=== PATIENT | male | born 1940 | race Caucasian/White ===

== ENCOUNTER 2017-07-21 01:10 | Observation (INO) | payer OTHER ==
[2017-07-21 01:28] LABS: PLATELET COUNT 226 10^3/uL (150-400)
[2017-07-21] MEDS ORDERED: NS 1,000 ML IV ONE (01:32)
--- NOTE | 2017-07-21 01:32 | EDPHY ---
H & P Stated Complaint: ams Time Seen by Provider: 07/21/17 01:20 HPI/ROS: HPI The patient presents brought in by paramedics with altered mental status. The patient's says that she left the house at 5:45 a.m. And he was acting normally, when she returned at 9:15 a.m. She noticed that he was confused, flushed, and was complaining that he felt hot which is unusual for him. She said he normally is aware of the date in his surroundings, though he was not able to provide this information for her. She called 911. Paramedics report that the patient was refusing to get on the pre a.m. And required restraints in route. They stated that he was confused though redirectable. His reports some of his psychiatric medications changed about 4 months ago. He does not have any diagnosis of dementia though has a history of TBI. [facility] is [facility].. REVIEW OF SYSTEMS Constitutional: No fever, no chills. Eyes: No discharge. ENT: No sore throat. Cardiovascular: No chest pain, no palpitations. Respiratory: No cough, no shortness of breath. Gastrointestinal: No abdominal pain, no vomiting. Genitourinary: No hematuria. Musculoskeletal: No back pain. Skin: No rashes. Neurological: No headache. PMHx: Bipolar disorder, tardive dyskinesia, COPD on 2 L home O2 p.r.n., hyperlipidemia, BPH, history of TBI, recent normal colonoscopy, [facility] patient Soc Hx: Lives at home with his PHYSICAL General Appearance: Alert, no distress Eyes: Pupils equal and round no pallor or injection ENT, Mouth: Mucous membranes moist Respiratory: There are no retractions, lungs are clear to auscultation Cardiovascular: Regular rate and rhythm Gastrointestinal: Abdomen is soft and non-tender, no masses, bowel sounds normal Neurological: Alert, cranial nerves 2-12 intact Skin: Warm and dry, no rashes Musculoskeletal: Neck is supple non tender Extremities: symmetrical, full range of motion Psychiatric: Patient is oriented X 2, there is no agitation Source: Patient, Family, EMS - Personal History Current Tetanus Diphtheria and Acellular Pertussis (TDAP): Unsure Tetanus Vaccine Date: < 10 years - Medical/Surgical History Hx Asthma: No Hx Chronic Respiratory Disease: Yes Hx Diabetes: No Hx Cardiac Disease: No Hx Renal Disease: No Hx Cirrhosis: No Hx Alcoholism: No Hx HIV/AIDS: No Hx Splenectomy or Spleen Trauma: No Other PMH: high cholesterol, COPD, bipolar disease, lung CA with partial right lobectomy, right shoulder repair, hx TBIs/Coma; benign skin CA, prostate issues , [place], hypothyroidism - Social History Smoking Status: Former smoker Constitutional: Initial Vital Signs Temperature (C) 36.6 C 07/21/17 01:14 Heart Rate 125 H 07/21/17 01:14 Respiratory Rate 18 07/21/17 01:14 Blood Pressure 107/86 H 07/21/17 01:14 O2 Sat (%) 95 07/21/17 01:14 O2 Delivery Mode Nasal Cannula O2 (L/minute) 2 Allergies/Adverse Reactions: paroxetine [Paroxetine] Allergy (Severe, Verified 07/21/17 01:14) Swelling/neck,face,throat Sulfa (Sulfonamide Antibiotics) Allergy (Mild, Verified 07/21/17 01:14) Unknown cortisone [Cortisone] Allergy (Unknown, Verified 07/21/17 01:14) Unknown Home Medications: Medication Instructions Recorded Aspirin 07/21/17 Combivent Respimat Inhal [place](*) 07/21/17 Lamotrigine 07/21/17 SIMVASTATIN 07/21/17 Tamsulosin HCl 07/21/17 traZODone 07/21/17 Medical Decision Making - Diagnostics EKG Interpretation: EKG: Complete interpretation has been separately recorded in the [facility] archive. Summary impression: Sinus tachycardia with right bundle branch block and left anterior fascicular block Imaging Results: Chest x-ray two view shows no infiltrate, no cardiomegaly, no effusion, interpreted by me, radiology interpretation is pending. Imaging: I viewed and interpreted images myself Differential Diagnosis: This is a 77-year-old male with history of bipolar disorder, COPD, traumatic brain injury who presents with altered mental status for the last several hours. returned home after being gone for about 3 hr finding him confused , flushed, complaining that he was feeling hot. On exam here, he is tachycardic, he is otherwise normal vital signs and is afebrile. His mental status is good, he is awake and alert though somewhat confused and nonsensical at times though easily redirectable. Differential diagnosis includes infection, electrolyte disturbance, dehydration , brain mass, CVA, medication side-effect. In the emergency department, patient was started on IV fluids for tachycardia. Labs were checked and were relatively unremarkable except for slightly elevated calcium level. CT scan of head showed no acute injuries. Despite IV fluids, the patient's mental status did not improve. His tachycardia did improve. UA showed no sign of infection, chest x-ray was normal. felt that she could not take him home because of his ongoing confusion. I have discussed the case with the hospitalist who will admit the patient. - Data Points Laboratory Results: Laboratory Results 07/21/17 01:15 07/21/17 01:15 07/21/17 07/21/17 07/21/17 03:20 01:15 01:15 WBC 9.57 10^3/uL H 10^3/uL (3.80-9.50) RBC 4.59 10^6/uL 10^6/uL (4.40-6.38) Hgb 14.4 g/dL g/dL (13.7-17.5) Hct 43.6 % % (40.0-51.0) MCV 95.0 fL fL (81.5-99.8) MCH 31.4 pg pg (27.9-34.1) MCHC 33.0 g/dL g/dL (32.4-36.7) RDW 13.2 % % (11.5-15.2) Plt Count 226 10^3/uL 10^3/uL (150-400) MPV 8.8 fL fL (8.7-11.7) Neut % (Auto) 74.6 % H % (39.3-74.2) Lymph % (Auto) 15.8 % % (15.0-45.0) [place] % (Auto) 7.0 % % (4.5-13.0) Eos % (Auto) 1.3 % % (0.6-7.6) Baso % (Auto) 0.9 % % (0.3-1.7) Nucleat RBC Rel Count 0.0 % % (0.0-0.2) Absolute Neuts (auto) 7.14 10^3/uL H 10^3/uL (1.70-6.50) Absolute Lymphs (auto) 1.51 10^3/uL 10^3/uL (1.00-3.00) Absolute Monos (auto) 0.67 10^3/uL 10^3/uL (0.30-0.80) Absolute Eos (auto) 0.12 10^3/uL 10^3/uL (0.03-0.40) Absolute Basos (auto) 0.09 10^3/uL 10^3/uL (0.02-0.10) Absolute Nucleated RBC 0.00 10^3/uL 10^3/uL (0-0.01) Immature Gran % 0.4 % % (0.0-1.1) Immature Gran # 0.04 10^3/uL 10^3/uL (0.00-0.10) Sodium 146 mEq/L H mEq/L (135-145) Potassium 4.6 mEq/L mEq/L (3.5-5.2) Chloride 107 mEq/L mEq/L (97-110) Carbon Dioxide 24 mEq/l mEq/l (22-31) Anion Gap 15 mEq/L mEq/L (8-16) BUN 28 mg/dL H mg/dL (7-23) Creatinine 1.1 mg/dL mg/dL (0.7-1.3) Estimated GFR > 60 Glucose 108 mg/dL H mg/dL (70-100) Calcium 11.4 mg/dL H mg/dL (8.5-10.4) Phosphorus 3.8 mg/dL mg/dL (2.5-4.5) Total Bilirubin 0.6 mg/dL mg/dL (0.1-1.4) Conjugated Bilirubin 0.4 mg/dL mg/dL (0.0-0.5) Unconjugated Bilirubin 0.2 mg/dL mg/dL (0.0-1.1) AST 27 IU/L IU/L (17-59) ALT 42 IU/L IU/L (21-72) Alkaline Phosphatase 114 IU/L IU/L (38-126) Total Protein 7.6 g/dL g/dL (6.3-8.2) Albumin 4.9 g/dL g/dL (3.5-5.0) TSH 5.330 uIU/mL H uIU/mL (0.465-4.680) Urine Color COLORLESS Urine Appearance CLEAR Urine pH 6.0 (5.0-7.5) Ur Specific [place] 1.004 (1.002-1.030) Urine Protein NEGATIVE (NEGATIVE) Urine Ketones NEGATIVE (NEGATIVE) Urine Blood NEGATIVE (NEGATIVE) Urine Nitrate NEGATIVE (NEGATIVE) Urine Bilirubin NEGATIVE (NEGATIVE) Urine Urobilinogen NEGATIVE EU EU (0.2-1.0) Ur Leukocyte Esterase NEGATIVE (NEGATIVE) Urine Glucose NEGATIVE (NEGATIVE) Urine Opiates Screen NEGATIVE (NEGATIVE) Urine Barbiturates NEGATIVE (NEGATIVE) Ur Phencyclidine Scrn NEGATIVE (NEGATIVE) Ur Amphetamine Screen NEGATIVE (NEGATIVE) U Benzodiazepines Scrn NEGATIVE (NEGATIVE) [place] < 0.2 mEq/L L mEq/L (0.6-1.2) Urine Cocaine Screen NEGATIVE (NEGATIVE) U Marijuana (THC) Screen NEGATIVE (NEGATIVE) Ethyl Alcohol < 10 mg/dL mg/dL (0-10) Medications Given: Discontinued Medications Sodium Chloride (Ns) 1,000 mls @ 0 mls/hr IV EDNOW ONE; Wide Open PRN Reason: Protocol Stop: 07/21/17 01:33 Last Admin: 07/21/17 01:48 Dose: 1,000 mls Departure - Departure Disposition: [facility] Inpatient Acute Clinical Impression: Hypercalcemia, Dehydration Altered mental status Qualifiers: Altered mental status type: disorientation Qualified Code(s): R41.0 - Disorientation, unspecified Bipolar disorder Qualifiers: Active/Remission status: currently active Current bipolar episode type: manic Current episode severity: unspecified Qualified Code(s): F31.9 - Bipolar disorder, unspecified Condition: Fair
--- NOTE | 2017-07-21 01:57 | CPEKG ---
Heart Rate: 130 RR Interval: 462 P-R Interval: 76 QRSD Interval: 142 QT Interval: 356 QTC Interval: 524 P Hope: 0 QRS Hope: 103 T Wave Hope: -5 EKG Severity - ABNORMAL ECG - EKG Impression: SINUS TACHYCARDIA EKG Impression: VENTRICULAR PREMATURE COMPLEX EKG Impression: RBBB AND LPFB Electronically Signed By: Kamini Osborn 22-Jul-2017 07:51:34
[2017-07-21] MEDS ORDERED: ONDANSETRON 4 MG/2 ML VIAL IVP PRN (04:23)
[2017-07-21] MEDS ORDERED: ONDANSETRON DISINTEGRATING 4 MG TAB PO PRN (04:23)
[2017-07-21] MEDS ORDERED: ACETAMINOPHEN 325 MG TAB PO PRN (04:23)
--- NOTE | 2017-07-21 05:22 | PDGENHP ---
History and Physical - Chief Complaint Confusion - History of Present Illness 77 yo M w/ BPD and COPD comes in with confusion. His brought him in because of odd statements at home. Apparently he was making delusional claims about his meal and his dogs earlier in the day. Per his , he was appropriate as recently as early this morning. The patient himself denies any complaints to me. He is A&Ox3 with appropriate knowledge but did make some odd statements in my presence, like stating that his was going to be admitted and then sent to another facility. He denies auditory or visual hallucinations. His did note that he did not sleep at all 2 nights ago, and that he has not shown any signs of being fatigued since. He takes lamotrigine for BPD, which is new to him 4 months ago. His has no concerns about non-compliance. History Information - Allergies/Home Medication List Allergies/Adverse Reactions: paroxetine [Paroxetine] Allergy (Severe, Verified 07/21/17 01:14) Swelling/neck,face,throat Sulfa (Sulfonamide Antibiotics) Allergy (Mild, Verified 07/21/17 01:14) Unknown cortisone [Cortisone] Allergy (Unknown, Verified 07/21/17 01:14) Unknown Home Medications: Aspirin 07/21/17 [Last Taken Unknown] Combivent Respimat Inhal [place](*) 07/21/17 [Last Taken Unknown] Lamotrigine 07/21/17 [Last Taken Unknown] SIMVASTATIN 07/21/17 [Last Taken Unknown] Tamsulosin HCl 07/21/17 [Last Taken Unknown] traZODone 07/21/17 [Last Taken Unknown] I have personally reviewed and updated: family history, medical history - Past Medical History COPD Additional medical history: Bipolar d/o - Family History Positive for: cancer - Social History Smoking Status: Former smoker Review of Systems Review of Systems: ROS: 10pt was reviewed & negative except for what was stated in HPI & below Physical Exam Physical Exam: Temp Pulse Resp BP Pulse Ox 36.6 C 64 20 136/87 H 98 07/21/17 01:14 07/21/17 04:10 07/21/17 04:10 07/21/17 04:10 07/21/17 04:10 Constitutional: no apparent distress, not in pain Eyes: PERRL, EOMI Ears, Nose, Mouth, Throat: moist mucous membranes, no oral mucosal ulcers Cardiovascular: regular rate and rhythym, no murmur, rub, or gallop Respiratory: no respiratory distress, clear to auscultation Gastrointestinal: normoactive bowel sounds, soft, non-tender abdomen Skin: warm, normal color Musculoskeletal: full muscle strength, no muscle tenderness Neurologic: AAOx3, CN II-XII Intact, other (Tardive dyskinesia noted) Psychiatric: interacting appropriately, not anxious Lab Data & Imaging Review 07/21/17 01:15 07/21/17 01:15 WBC 9.57 10^3/uL (3.80-9.50) H 07/21/17 01:15 RBC 4.59 10^6/uL (4.40-6.38) 07/21/17 01:15 Hgb 14.4 g/dL (13.7-17.5) 07/21/17 01:15 Hct 43.6 % (40.0-51.0) 07/21/17 01:15 MCV 95.0 fL (81.5-99.8) 07/21/17 01:15 MCH 31.4 pg (27.9-34.1) 07/21/17 01:15 MCHC 33.0 g/dL (32.4-36.7) 07/21/17 01:15 RDW 13.2 % (11.5-15.2) 07/21/17 01:15 Plt Count 226 10^3/uL (150-400) 07/21/17 01:15 MPV 8.8 fL (8.7-11.7) 07/21/17 01:15 Neut % (Auto) 74.6 % (39.3-74.2) H 07/21/17 01:15 Lymph % (Auto) 15.8 % (15.0-45.0) 07/21/17 01:15 [place] % (Auto) 7.0 % (4.5-13.0) 07/21/17 01:15 Eos % (Auto) 1.3 % (0.6-7.6) 07/21/17 01:15 Baso % (Auto) 0.9 % (0.3-1.7) 07/21/17 01:15 Nucleat RBC Rel Count 0.0 % (0.0-0.2) 07/21/17 01:15 Absolute Neuts (auto) 7.14 10^3/uL (1.70-6.50) H 07/21/17 01:15 Absolute Lymphs (auto) 1.51 10^3/uL (1.00-3.00) 07/21/17 01:15 Absolute Monos (auto) 0.67 10^3/uL (0.30-0.80) 07/21/17 01:15 Absolute Eos (auto) 0.12 10^3/uL (0.03-0.40) 07/21/17 01:15 Absolute Basos (auto) 0.09 10^3/uL (0.02-0.10) 07/21/17 01:15 Absolute Nucleated RBC 0.00 10^3/uL (0-0.01) 07/21/17 01:15 Immature Gran % 0.4 % (0.0-1.1) 07/21/17 01:15 Immature Gran # 0.04 10^3/uL (0.00-0.10) 07/21/17 01:15 Sodium 146 mEq/L (135-145) H 07/21/17 01:15 Potassium 4.6 mEq/L (3.5-5.2) 07/21/17 01:15 Chloride 107 mEq/L (97-110) 07/21/17 01:15 Carbon Dioxide 24 mEq/l (22-31) 07/21/17 01:15 Anion Gap 15 mEq/L (8-16) 07/21/17 01:15 BUN 28 mg/dL (7-23) H 07/21/17 01:15 Creatinine 1.1 mg/dL (0.7-1.3) 07/21/17 01:15 Estimated GFR > 60 07/21/17 01:15 Glucose 108 mg/dL (70-100) H 07/21/17 01:15 Calcium 11.4 mg/dL (8.5-10.4) H 07/21/17 01:15 Phosphorus 3.8 mg/dL (2.5-4.5) 07/21/17 01:15 Total Bilirubin 0.6 mg/dL (0.1-1.4) 07/21/17 01:15 Conjugated Bilirubin 0.4 mg/dL (0.0-0.5) 07/21/17 01:15 Unconjugated Bilirubin 0.2 mg/dL (0.0-1.1) 07/21/17 01:15 AST 27 IU/L (17-59) 07/21/17 01:15 ALT 42 IU/L (21-72) 07/21/17 01:15 Alkaline Phosphatase 114 IU/L (38-126) 07/21/17 01:15 Total Protein 7.6 g/dL (6.3-8.2) 07/21/17 01:15 Albumin 4.9 g/dL (3.5-5.0) 07/21/17 01:15 TSH 5.330 uIU/mL (0.465-4.680) H 07/21/17 01:15 Urine Color COLORLESS 07/21/17 03:20 Urine Appearance CLEAR 07/21/17 03:20 Urine pH 6.0 (5.0-7.5) 07/21/17 03:20 Ur Specific [place] 1.004 (1.002-1.030) 07/21/17 03:20 Urine Protein NEGATIVE (NEGATIVE) 07/21/17 03:20 Urine Ketones NEGATIVE (NEGATIVE) 07/21/17 03:20 Urine Blood NEGATIVE (NEGATIVE) 07/21/17 03:20 Urine Nitrate NEGATIVE (NEGATIVE) 07/21/17 03:20 Urine Bilirubin NEGATIVE (NEGATIVE) 07/21/17 03:20 Urine Urobilinogen NEGATIVE EU (0.2-1.0) 07/21/17 03:20 Ur Leukocyte Esterase NEGATIVE (NEGATIVE) 07/21/17 03:20 Urine Glucose NEGATIVE (NEGATIVE) 07/21/17 03:20 Urine Opiates Screen NEGATIVE (NEGATIVE) 07/21/17 03:20 Urine Barbiturates NEGATIVE (NEGATIVE) 07/21/17 03:20 Ur Phencyclidine Scrn NEGATIVE (NEGATIVE) 07/21/17 03:20 Ur Amphetamine Screen NEGATIVE (NEGATIVE) 07/21/17 03:20 U Benzodiazepines Scrn NEGATIVE (NEGATIVE) 07/21/17 03:20 [place] < 0.2 mEq/L (0.6-1.2) L 07/21/17 01:15 Urine Cocaine Screen NEGATIVE (NEGATIVE) 07/21/17 03:20 U Marijuana (THC) Screen NEGATIVE (NEGATIVE) 07/21/17 03:20 Ethyl Alcohol < 10 mg/dL (0-10) 07/21/17 01:15 Visualized and Interpreted Chest x-ray results: Yes Chest X-Ray results: no infiltrate Assessment & Plan Assessment: 77 yo M w/ BPD and COPD presents with AMS. Plan: 1. Acute encephalopathy - Unclear etiology; overall this is fairly subtle and manifested mostly as delusional thinking without overt hallucinations. The patient himself is A&Ox3 and denies any symptoms. He has slept little over the last few days, which may be a signal of hypomania or early nikhil. His laboratory work-up is notable only for mildly abnormal TSH and calcium, which are unlikely responsible but merit further investigation. CTH without acute findings. - Admit for observation - Repeat CMP with AM labs to recheck Calcium and albumin levels - Will check free T4 to better quantify thyroid function - UA, CXR for basic infectious work-up - PT/OT evaluations - Would consult psychiatry for evaluation 2. Hx of BPD - Takes lamotrigine as monotherapy; this is new as of 4 months ago. 3. COPD - No signs of acute exacerbation, on Combivent as outpatient. Diet - Regular Code - Full Ppx - LMWH Dispo - Admit under observation status
[2017-07-21] MEDS: ENOXAPARIN 40 MG/0.4 ML SYR SC SCH (08:21)
--- NOTE | 2017-07-21 09:13 | HOSPPROG ---
Hospitalist Progress Note Assessment/Plan: Patient is a 77-year-old male with bipolar disorder and COPD. His brought him to the emergency room due to confusion and the patient was making odd statements. He was started on Lamictal approximately 4 months ago. Today is my 1st encounter with the patient. Chart reviewed. I discussed his case with the admitting hospitalist this morning * Acute encephalopathy -reviewed the CT of the head which showed no significant changes from his brain MRI in 2009 -chest x-ray shows no infectious etiology -he slept very little over the last few days and could be of signal of nikhil -will ask speech therapy to do a cognitive evaluation -TSH is high with a stable T4 -ua is fine -patient sees a psychiatrist via the [facility] * history of bipolar disorder -recently started on lamotrigine -sees a doctor at the [facility]-psychiatrist * COPD -uses Combivent in the outpatient setting -current 3 L of oxygen *Plan: patient is medically stable, but unclear about his BPD. Spoke w JESSICA VALENCIA and they will evaluate, He is alert, oriented to person, time, who the president is, but thinks he is here because his was having seizures. Will ask psychiatry to weigh in. Subjective: Pat said he feels fine, has no complaints. Objective: Vital Signs Temp Pulse Resp BP Pulse Ox 36.4 C 67 18 131/81 H 98 07/21/17 07:38 07/21/17 07:38 07/21/17 07:38 07/21/17 07:38 07/21/17 07:38 Laboratory Results 07/21/17 07:57 07/20/17 07/21/17 07/22/17 05:59 05:59 05:59 Output Total 650 Balance -650 - Physical Exam Constitutional: no apparent distress, appears nourished, not in pain Eyes: PERRL Ears, Nose, Mouth, Throat: hard of hearing Cardiovascular: regular rate and rhythym Respiratory: no respiratory distress Gastrointestinal: normoactive bowel sounds Skin: warm Neurologic: AAOx3 Psychiatric: interacting appropriately, poor insight, poor judgement, poor memory ICD10 Worksheet Patient Problems: Problems Problem Status Onset Altered mental status Acute Bipolar disorder Acute Dehydration Acute Hypercalcemia Acute Bipolar disease, manic Acute
--- NOTE | 2017-07-21 14:06 | ASMTCMCOM ---
CM Note CM Note Notes: Pt in for AMS after noticed pt to be altered. Pt with Bipolar Disorder, COPD, history of TBI and lung cancer. Chart review indicates pt was at [facility] inpatient beh health 2 years ago. [facility] assessed pt today to have no acute beh health needs requiring inpatient beh health. Pt followed by psychiatrist at [facility] in [place]. [employer] eval pending. CM to follow. Date Signed: 07/21/2017 02:05 PM Electronically Signed By:ZOILA Vail
[2017-07-21] MEDS ORDERED: ALBUTEROL 60 PUFFS/8 GM MDI IH PRN (15:33)
[2017-07-21] MEDS ORDERED: traZODone 100 MG TAB PO PRN (15:33)
[2017-07-21] MEDS: IPRATROPIUM/ALBUTEROL 4GM MDI IH SCH ×2 (17:17→20:25)
[2017-07-21] MEDS ORDERED: lamoTRIgine 100 MG TAB PO SCH (21:00)
[2017-07-21] MEDS ORDERED: TAMSULOSIN HCL 0.4 MG CAP PO SCH (21:00)
[2017-07-21] MEDS ORDERED: NON-FORMULARY NEW DRUG (Simvastatin [Simvastatin] 40 MG) PO SCH (21:00)
[2017-07-21] MEDS ORDERED: NON-FORMULARY NEW DRUG (Lamotrigine [Lamotrigine] 200 MG) PO SCH (21:00)
[2017-07-21] MEDS ORDERED: ATORVASTATIN CALCIUM 20 MG TAB PO SCH (21:00)
[2017-07-21] MEDS ORDERED: BUDESONIDE/FORMOTEROL 160/4.5 60 PUFFS/MDI IH SCH (21:00)
[2017-07-22] MEDS: IPRATROPIUM/ALBUTEROL 4GM MDI IH SCH ×2 (05:35→08:42)
[2017-07-22] MEDS ORDERED: BUDESONIDE/FORMOTEROL 160/4.5 60 PUFFS/MDI IH SCH (09:00)
[2017-07-22] MEDS ORDERED: ASPIRIN EC 81 MG TAB PO SCH (09:00)
[2017-07-22] MEDS: ENOXAPARIN 40 MG/0.4 ML SYR SC SCH (10:21)
[2017-07-22 11:43] VITALS: BP 95/69
--- NOTE | 2017-07-22 12:15 | NEUROPROG ---
Assessment: HOSPITAL NEUROLOGY CONSULT REQUESTING: Ani Bradley NP REASON: AMS HPI: 77 year old right-handed man with a history of bipolar disorder presented to our ED 07/20 with AMS. Patient's is at bedside at presents most of the history. On day of admission, patient began displaying concerning symptoms of confusion. He is usually oriented an appropriate, but seemed to not know the date. He was also making odd statements. states he had not slept the 2 nights prior to admission. He tells me he is not the one hospitalized, but actually his is here in the hospital for low calcium that was just fixed so she's going home today. He states he feels well and has no departure from his baseline. He has not made any indication of self harm or harm to others. No indication of hallucinations. No agitation or other behavioral disturbance. He does have long-standing orolingual dyskinesias, but no other adventitial movements. No stiffness/rigidity of the limbs. No change in gait. No weakness or sensory loss. No speech/language disturbance. No JACK, fevers. No LOC or seizure activity. No indication of recent illness or injury. ROS: As per the HPI, otherwise a complete 12 point ROS was performed and is negative ALLERGIES AND MEDS: As recorded in the EMR - reviewed and reconciled PFSH: As per the intake H&P by Dr. Gorman from 07/20 EXAM: VS reviewed in EMR GEN: thin man sitting in NAD HEENT: NCAT, sclera anicteric, conjunctiva not injected, MMM, oropharynx clear, no scalp tenderness NECK: supple, nontender, no meningismus CV: RRR s1 s2 wo m/r/c/g. Carotid pulses 2+ wo bruit NEURO: MS: awake, alert, oriented to self, , place not date or situation. Speech nondysarthric. Content of speech tangential. Thoughts a bit disorganized. Acitve delusion that his is hospitalized. No hallucinations. No language disturbance. Follows commands. Attends to both sides. Difficult to assess memory due to tangentiality and delusions. Mood euthymic, perhaps even a bit elevated. Adequate fund of knowledge. Poor insight. CN: pupils 3mm round and reactive. Intolerant of fundoscopy. VFF. Primary gaze centered. Restricted vertical gaze. Facial sensation preserved. Face symmetric. Orolingual dyskinesias present. Hearing grossly intact to finger rub. Palatoglossal movements intact. Shoulder shrug and head turn strong. MOTOR: reduced bulk throughout. Normal tone. No adventitial movements in trunk /extremities. Full power throughout. SENSORY: intact/symmetric LT/PP in all extremities. No extinction. COORD: no ataxia FN/HS. [place] preserved. Romberg neg. REFLEX: plantars down. No clonus. Absent ankle jerks, other DTRS 1/4. GAIT: seen walking from bed to couch - rises unassisted. Narrow base. Intact stride length/heel strike/toe lift/arm swing. Turns with 2 steps. DATA REVIEW: Labs reviewed in EMR TSH elevated but normal free T4 PERSONALLY INTERPRETED RESULTS AND DATA: CT head wo - some global volume loss, otherwise unremarkable IMPRESSION AND RECOMMENDATIONS: // SUSPECT DECOMPENSATED BIPOLAR DISORDER Patient with 2 nights of sleeplessness followed by delusions, tangential speech and disorganized thoughts. Doubt symptoms represent a neurodegenerative process - semiology more consistent with decompensation of his known bipolar disorder. In any event, treatment would be focused on symptoms. Recommend followup with his psychiatrist for medication optimization. If he improves with treatment of bipolar, then this supports the working diagnosis. If he does not respond to treatment for bipolar, then he can be referred to neuropsychology for cognitive exam. He is being medically screened by primary team. From a medical standpoint, would advise checking B12 and optimizing as needed. Will sign off. Recall PRN. Objective: Vital Signs Temp Pulse Resp BP Pulse Ox 36.6 C 70 18 95/69 L 95 07/22/17 11:36 07/22/17 11:36 07/22/17 11:36 07/22/17 11:36 07/22/17 11:36 Laboratory Results 07/21/17 07:57 07/21/17 07/22/17 07/23/17 05:59 05:59 05:59 Intake Total 1440 480 Output Total 1050 Balance 390 480 Allergies/Adverse Reactions: paroxetine [Paroxetine] Allergy (Severe, Verified 07/21/17 01:14) Swelling/neck,face,throat Sulfa (Sulfonamide Antibiotics) Allergy (Mild, Verified 07/21/17 01:14) Unknown cortisone [Cortisone] Allergy (Unknown, Verified 07/21/17 01:14) Unknown
--- NOTE | 2017-07-22 12:50 | HOSPPROG ---
Hospitalist Progress Note Assessment/Plan: Patient is a 77-year-old male with bipolar disorder and COPD. His brought him to the emergency room due to confusion and the patient was making odd statements. He was started on Lamictal approximately 4 months ago. * Acute encephalopathy -reviewed the CT of the head which showed no significant changes from his brain MRI in 2009 -chest x-ray shows no infectious etiology -he slept very little over the last few days and could be of signal of nikhil -TSH is high with a stable T4 -ua is fine -patient sees a psychiatrist via the [place] -appreciate neurology seeing -appreciate speech therapy seeing; very helpful *tardive dyskinesia * history of bipolar disorder -recently started on lamotrigine -sees a doctor at the [place]-psychiatrist * COPD -uses Combivent in the outpatient setting -current on room air *Plan: dc home, will get B12 level Subjective: Pat says he has a little abdominal pain, thinks it is from constipation Objective: Vital Signs Temp Pulse Resp BP Pulse Ox 36.6 C 70 18 95/69 L 95 07/22/17 11:36 07/22/17 11:36 07/22/17 11:36 07/22/17 11:36 07/22/17 11:36 Laboratory Results 07/21/17 07:57 07/21/17 07/22/17 07/23/17 05:59 05:59 05:59 Intake Total 1440 480 Output Total 1050 Balance 390 480 - Physical Exam Constitutional: no apparent distress Eyes: PERRL, other (glasses) Ears, Nose, Mouth, Throat: hard of hearing (bilateral hearing aid) Cardiovascular: regular rate and rhythym Respiratory: no respiratory distress Gastrointestinal: normoactive bowel sounds, tenderness (slight to r lower quadrant) Skin: warm Musculoskeletal: generalized weakness Neurologic: other (alert and oriented to president, ) Psychiatric: interacting appropriately ICD10 Worksheet Patient Problems: Problems Problem Status Onset Altered mental status Acute Bipolar disorder Acute Dehydration Acute Hypercalcemia Acute Bipolar disease, manic Acute
--- NOTE | 2017-07-22 15:03 | GDS ---
[f rep st] DISCHARGE SUMMARY DISCHARGE DIAGNOSES: 1. Acute encephalopathy. 2. Tardive dyskinesia. 3. History of bipolar disorder. 4. Chronic obstructive pulmonary disease. CONSULTATION: Dr. Yousif Bolden. HISTORY OF PRESENT ILLNESS: Briefly, the patient is a 77-year-old male with bipolar disorder and [employer] D. His brought him to the ER due to confusion. The patient was making odd statements. He was recently started on Lamictal approximately 4 months ago. He was seen and evaluated by Dr. Yousif meyers with Neurology. His recommendation was that the patient had decompensated bipolar disorder. He recommended that he follow up with psychiatrist for medication optimization. If he does not respond to treatment for bipolar disorder, he recommended he be referred to Neuropsychology for cognitive exa mination. Of note, he was seen and evaluated by Speech Therapy. On his cognitive exam that was base d on the Issac Cognitive Assessment, he demonstrated difficulty of executive functioning and poor insight and poor judgment. He scored 11/30. Recommendation to the is for him to get further ev aluation at the [place]. HOSPITAL COURSE PER PROBLEM: 1. Acute encephalopathy. He is markedly improved today. He is very interactive and back to his [facility]. 2. Tardive dyskinesia. I suspect this is from the medication he has taken for his bipolar disorder. It is quite significant. Further followup with his doctor at the [place]. 3. History of bipolar disorder. Will continue lamotrigine and have him follow up with his psychiatr ist. 4. COPD. Continue Combivent. DISCHARGE CONDITION: Stable. VITAL SIGNS: Blood pressure is 116/62, heart rate is 61, respiratory rate of 14, O2 sats on room air 92%, temperature is 37.3 Celsius. MEDICATIONS AT DISCHARGE: Please see the EMR. DISCHARGE INSTRUCTIONS: 1. To get a TSH checked in 6 weeks. His TSH is slightly elevated. 2. To get B12 checked. This, in addition, was elevated. 3. If he develops fever, chills, chest pain, or worsening cognitive issues, to return to the ER. /[id number]/MODL
== END 2017-07-22 15:09 | disposition home or self-care (01) ==
LOC: EDUNIT# → EDBD → F3N 05:34
PROVIDERS: ADMIT Student in an Organized Health Care Education/Training Program; ATTEND Student in an Organized Health Care Education/Training Program
DX: G93.40 Encephalopathy, unspecified (principal); G24.01 Drug induced subacute dyskinesia; F31.9 Bipolar disorder, unspecified; J44.9 Chronic obstructive pulmonary disease, unspecified; E83.52 Hypercalcemia; E86.0 Dehydration; Z90.2 Acquired absence of lung [part of]; Z87.891 Personal history of nicotine dependence; Z88.2 Allergy status to sulfonamides
CPT/HCPCS: 70450; 71046; 92523; 93005; 96360; 99285; G0378; 80305; 82607-90; G0480; J1650